=== PATIENT | female | born 1960 | race Caucasian/White ===

== ENCOUNTER → 2023-12-28 10:44 | Outpatient (REF) | payer BC, SELFPAY | LOC: RAD 10:44 | PROVIDERS: ATTENDING PHYSICIAN Family Medicine | DX: M54.2 Cervicalgia (principal) | CPT/HCPCS: 72040 ==

== ENCOUNTER → 2024-10-18 13:37 | Outpatient (REF) | payer BC, SELFPAY | LOC: HWWDC 13:37 | PROVIDERS: ATTENDING PHYSICIAN Family Medicine | DX: Z12.31 Encounter for screening mammogram for malignant neoplasm of breast (principal); R10.31 Right lower quadrant pain | CPT/HCPCS: 76705 ==